=== PATIENT | female | born 1995 | race Caucasian/White ===

== ENCOUNTER 2023-06-26 11:24 | Outpatient (REF) | payer MEDICAID, SELFPAY ==
--- NOTE | ~2023-06-26 | US_ITS ---
EXAMINATION: US PELVIS CLINICAL INFORMATION: IUD check, long strings on exam. COMPARISON: None available. TECHNIQUE: Ultrasound of the pelvis is performed using both transabdominal and transvaginal transducers along with Doppler. Transvaginal imaging is performed due to inadequate visualization transabdominally. FINDINGS: The uterus is heterogeneous and measures 8.1 x 3.7 x 5.3 cm. No discrete fibroids are appreciated. IUD position is lower than expected, at the level of the lower uterine segment/cervix. Gynecologic consultation and correlation with clinical exam recommended. Right ovary measures 2.2 x 1.3 x 1.9 cm, volume 2.8 mL. Left ovary measures 3.3 x 2.1 x 2.1 cm, volume 7.3 mL. Bilateral ovaries demonstrate multiple small follicles. Limited visualization due to bowel gas. No significant free fluid. US/US pelvic and transvaginal IMPRESSION: 1. IUD position is lower than expected, at the level of the lower uterine segment/cervix. Gynecologic consultation and correlation with clinical exam recommended. 2. No discrete fibroids. 3. Bilateral ovaries demonstrate multiple small follicles. Limited visualization due to bowel gas. This study was presented today June 26, 2023 for interpretation. Stat results provided at this time as requested by referring provider.
== END 2023-06-26 11:25 | disposition home or self-care (01) ==
LOC: HO.US 11:24
PROVIDERS: PCP Pediatrics; Visit Provider Advanced Practice Midwife
DX: Z30.431 Encounter for routine checking of intrauterine contraceptive device (principal)
CPT/HCPCS: 76830; 76856

== ENCOUNTER 2023-07-03 08:30 | Outpatient (REF) | payer MEDICAID, SELFPAY ==
[2023-07-03 14:28] LABS: MANUAL DIFF FLAG NO
[2023-07-03 14:40] LABS: Basophils Percent Auto 0.3 % (0-2); Eosinophils Absolute Auto 0.3 X10*3/uL (0.0-0.4); Eosinophils Percent Auto 4.1 % (0-4); Hematocrit 38.7 % (37.0-47.0); Imm Gran Abs Auto 0.01 X10*3/uL (0.00-0.03); Imm Gran Pct Auto 0.1 % (0.0-0.4); Lymphocytes Absolute Auto 1.8 X10*3/uL (1.2-4.9); Lymphocytes Percent Auto 26.9 % (20-40); Mean Corpuscular HGB Conc 33.6 g/dl (31.0-35.0); Mean Corpuscular Hemoglobin 30.2 pg (27.0-33.0); Mean Corpuscular Volume 89.8 fL (80.0-98.0); Mean Platelet Volume 11.4 fL (9.4-12.3); Monocytes Absolute Auto 0.4 X10*3/uL (0.1-1.2); Monocytes Percent Auto 6.4 % (2-11); Neutrophils Absolute Auto 4.2 x10*3/uL (2.0-8.3); Neutrophils Percent Auto 62.2 % (45-73); Platelet Count 227 X10*3/uL (160-400); Red Blood Count 4.31 X10*6/uL (4.20-5.50); Red Cell Distribution Width 12.6 % (11.0-16.0); White Blood Count 6.8 X10*3/uL (4.8-10.8)
[2023-07-03 14:43] LABS: Estimated Average Glucose 94 mg/dL; Hemoglobin A1c % 4.9 % (<6.0)
[2023-07-03 14:56] LABS: Alanine Aminotransferase 27 U/L (0-31); Alkaline Phosphatase 78 U/L (39-117); Aspartate Amino Transferase 18 U/L (5-31); Bilirubin Direct 0.2 mg/dL (0.0-0.5); Bilirubin Total 0.3 mg/dL (0.0-1.0); Cholesterol 161 mg/dL (<200); HDL Cholesterol 40 mg/dL (>40); LDL Cholesterol Calculated 107 mg/dL (<100); Triglycerides 72 mg/dL (<150)
[2023-07-03 15:15] LABS: TSH reflex Free T4 0.76 uIU/mL (0.32-4.0); Vitamin D 25-OH Total 18.4 ng/mL (>30)
[2023-07-03 15:25] LABS: Folate 6.6 ng/mL (> or = 4.0); Vitamin B12 853 pg/mL (200-900)
== END 2023-07-03 08:31 | disposition home or self-care (01) ==
LOC: HO.CHCLDS 08:30
PROVIDERS: Visit Provider Pediatrics
DX: R53.82 Chronic fatigue, unspecified (principal); E66.3 Overweight
CPT/HCPCS: 36415; 80061; 80076; 82306; 82607; 82746; 83036; 84443; 85025